=== PATIENT | male | born 1935 | race Two or more races ===

== ENCOUNTER 2020-12-06 11:15 | Inpatient (IN) | payer OTHER ==
[~2020-12-06] VITALS: Ht 180.3 cm; Wt 76.2 kg
[2020-12-06] MEDS ORDERED: FORTAMET500 MG (11:48)
[2020-12-06] MEDS ORDERED: RAMIPRIL10 MG (11:50)
[2020-12-06] MEDS ORDERED: ZOCOR40 MG (11:50)
[2020-12-06] MEDS ORDERED: INTEGRA PLUS C1 EACH (11:50)
[2020-12-06] MEDS ORDERED: AVALIDE 300-121 EACH (11:50)
[2020-12-06] MEDS ORDERED: ECOTRIN81 MG (11:51)
== END 2020-12-11 12:33 | disposition home or self-care (01) | DRG 177 ==
LOC: ER 11:15 → MEDJ 23:10
PROVIDERS: ADMIT Internal Medicine; ATTEND Internal Medicine
PROC: 4A033R1 Measurement of Arterial Saturation, Peripheral, Percutaneous Approach (ICD-10-PCS; principal; 2020-12-06)
PROC: 8E0ZXY6 Isolation (ICD-10-PCS; 2020-12-06)
PROC: 30233N1 Transfusion of Nonautologous Red Blood Cells into Peripheral Vein, Percutaneous Approach (ICD-10-PCS; 2020-12-07)
PROC: 4A12X4Z Monitoring of Cardiac Electrical Activity, External Approach (ICD-10-PCS; 2020-12-07)
DX: U07.1 COVID-19 (principal); J18.9 Pneumonia, unspecified organism; C67.9 Malignant neoplasm of bladder, unspecified; R19.5 Other fecal abnormalities; E11.9 Type 2 diabetes mellitus without complications; Z79.4 Long term (current) use of insulin; Z20.828 Contact with and (suspected) exposure to other viral communicable diseases; Z85.46 Personal history of malignant neoplasm of prostate; D63.0 Anemia in neoplastic disease